=== PATIENT | female | born 1985 | race Caucasian/White ===

== ENCOUNTER 2022-03-13 08:00 | Inpatient (IN) | payer OTHER ==
[2022-03-13] MEDS: DEXTROSE 5%-LACTATED RINGERS 1,000 ML IV SCH (08:30)
[2022-03-13] MEDS ORDERED: morphine SULFATE 4 MG/ML VIAL IVPB PRN (09:12)
[2022-03-13] MEDS ORDERED: OXYTOCIN 20 UNITS in 0.9% NS 20 UNIT/1,000 ML INFUS.BAG IV ONE ×2 (09:14→13:48)
[2022-03-13 09:25] LABS: BASO % 0.6 % (0-2.0); EOS % 1.1 % (0-4.5); HEMATOCRIT 36.9 % (32.4-45.2); HEMOGLOBIN 12.6 GM/dL (10.7-15.3); LYMPH % 26.3 % (8-40); MCH 31.1 pg (25.7-33.7); MCHC 34.3 g/dl (32.0-36.0); MEAN CELL VOLUME 90.8 fl (80-96); MONO % 9.6 % (3.8-10.2); NEUT % 62.4 % (42.8-82.8); PLATELET COUNT 179 10^3/uL (134-434); RBC 4.06 M/mm3 (3.60-5.2); RDW 14.6 % (11.6-15.6); WHITE BLOOD COUNT 9.7 K/mm3 (4.0-10.0)
[2022-03-13 09:32] LABS: INR 0.85 (0.83-1.09); PROTHROMBIN TIME (PATIENT) 9.8 SEC (9.7-13.0)
[2022-03-13 09:34] LABS: ACTIVATED PTT 25.7 SECONDS (25.2-36.5)
[2022-03-13 09:50] LABS: CALCIUM 8.8 mg/dL (8.5-10.1)
[2022-03-13 09:51] LABS: BLOOD UREA NITROGEN 6.6 mg/dL (7-18)
[2022-03-13 09:54] LABS: CREATININE 0.6 mg/dL (0.55-1.3)
[2022-03-13 10:55] LABS: CORD BASE EXCESS -2.3 mmol/L (0-2); CORD HCO3 22.5 mmHg (20-29); CORD PCO2 39.2 mmHg (30-78); CORD pH 7.377 (7.14-7.44)
[2022-03-13 10:58] LABS: CORD BASE EXCESS -5.1 mmol/L (0-2); CORD HCO3 24.2 mmHg (20-29); CORD pH 7.21 (7.14-7.44)
[2022-03-13] MEDS ORDERED: BENZOCAINE 28 GM HEMORRHOIDAL OINTMENT TP PRN (11:52)
[2022-03-13] MEDS ORDERED: ACETAMINOPHEN 325 MG TABLET (FP) PO PRN (11:52)
[2022-03-13] MEDS ORDERED: BENZOCAINE 20% 57 GM BOTTLE TP PRN (11:52)
[2022-03-13] MEDS ORDERED: OXYTOCIN 20 UNITS in 0.9% NS 20 UNIT/1,000 ML INFUS.BAG IV SCH (12:00)
[2022-03-13 12:54] VITALS: BMI 25.6
[2022-03-13] MEDS ORDERED: IBUPROFEN 600 MG TABLET (FP) PO ONE (13:40)
[2022-03-13] MEDS: IBUPROFEN 600 MG TABLET (FP) PO PRN ×3 (13:45→22:25)
[2022-03-13] MEDS: FERROUS SO4 325 MG TABLET (FP) PO SCH ×2 (14:14→17:11)
[2022-03-13 18:28] VITALS: RESP 18
[2022-03-14 08:51] LABS: BASO % 0.4 % (0-2.0); EOS % 1.3 % (0-4.5); HEMOGLOBIN 10.9 GM/dL (10.7-15.3); LYMPH % 22.1 % (8-40); MCHC 33.2 g/dl (32.0-36.0); MEAN CELL VOLUME 90.4 fl (80-96); MEAN PLT VOLUME 10.4 fl (7.5-11.1); MONO % 7.2 % (3.8-10.2); PLATELET COUNT 171 10^3/uL (134-434); RBC 3.65 M/mm3 (3.60-5.2); RDW 14.3 % (11.6-15.6); WHITE BLOOD COUNT 11.3 K/mm3 (4.0-10.0)
[2022-03-14] MEDS: FERROUS SO4 325 MG TABLET (FP) PO SCH ×3 (09:44→16:54)
[2022-03-14] MEDS: PRENATAL VITAMINS W/ FOLIC ACID TABLET (FP) PO SCH (09:44)
[2022-03-14] MEDS: DEXTROSE 5%-LACTATED RINGERS 1,000 ML IV SCH (19:53)
[2022-03-14] MEDS: IBUPROFEN 600 MG TABLET (FP) PO PRN (21:13)
[2022-03-14] MEDS: WITCH HAZEL 50% (TUCKS) 40 PAD/JAR PAD TP PRN (21:29)
[2022-03-14] MEDS ORDERED: SENNOSIDES/DOCUSATE COMBO (SENNA PLUS) TABLET (UD) PO PRN (22:00)
[2022-03-15] MEDS: WITCH HAZEL 50% (TUCKS) 40 PAD/JAR PAD TP PRN (09:13)
[2022-03-15] MEDS: FERROUS SO4 325 MG TABLET (FP) PO SCH ×2 (09:13→12:35)
[2022-03-15] MEDS: PRENATAL VITAMINS W/ FOLIC ACID TABLET (FP) PO SCH (09:13)
[2022-03-15 12:50] VITALS: BP 117/75; PULSE 70; TEMP 97.9
== END 2022-03-15 12:55 | disposition home or self-care (01) | DRG 560 ==
LOC: JLDR 08:00 → J3W 13:51
PROVIDERS: ADMIT Obstetrics & Gynecology Maternal & Fetal Medicine; ATTEND Obstetrics & Gynecology Maternal & Fetal Medicine
PROC: 10E0XZZ Delivery of Products of Conception, External Approach (ICD-10-PCS; principal; 2022-03-13)
PROC: 10907ZC Drainage of Amniotic Fluid, Therapeutic from Products of Conception, Via Natural or Artificial Opening (ICD-10-PCS; 2022-03-13)
DX: O98.52 Other viral diseases complicating childbirth (principal); U07.1 COVID-19; Z3A.38 38 weeks gestation of pregnancy; Z37.0 Single live birth
CPT/HCPCS: 36415; 36600; 59409; 80048; 82803; 85025; 85610; 85730; 86780; 86850; 86900; 86901; C9803-CS; U0003; U0005